=== PATIENT | male | born 1990 | race African-American/Black ===

== ENCOUNTER 2020-12-16 12:40 | Inpatient (IN) | payer MEDICARE, MEDICAID ==
[~2020-12-16] VITALS: Ht 177.8 cm; Wt 110.2 kg
[~2020-12-16 12:40] MED LIST: PALI234D IM; RISP3TAB35 PO
[2020-12-16 14:04] LABS: GLUCOMETER DEV NAME(LOC) POC.BV
[2020-12-16 14:50] VITALS: BP 152/86
[2020-12-16] MEDS: LORazepam 2 MG TABLET PO PRN (22:15)
[2020-12-16] MEDS: HALOPERIDOL 5 MG TABLET PO PRN (22:15)
[2020-12-17 01:58] VITALS: BP 106/66
[2020-12-17 03:11] VITALS: BP 112/74
[2020-12-17] MEDS: HALOPERIDOL 5 MG TABLET PO PRN ×2 (03:13→08:35)
[2020-12-17] MEDS: LORazepam 2 MG TABLET PO PRN ×2 (03:14→08:35)
[2020-12-17] MEDS ORDERED: ALBUTEROL SULFATE HFA 90 MCG/PUFF 8 GM INHALER IH PRN (07:45)
[2020-12-17] MEDS ORDERED: MAG HYDROX/AL HYDROX/SIMETH ES 30 ML SUSPENSION UDCUP PO PRN (07:45)
[2020-12-17] MEDS ORDERED: IBUPROFEN 400 MG TABLET PO PRN (07:45)
[2020-12-17] MEDS ORDERED: CloNIDine HCL 0.1 MG TABLET PO PRN (07:45)
[2020-12-17] MEDS ORDERED: NICOTINE 14 MG/24 HOUR PATCH TD PRN (07:45)
[2020-12-17] MEDS ORDERED: MAGNESIUM HYDROXIDE SUSPENSION 30 ML UDCUP PO PRN (07:45)
[2020-12-17] MEDS ORDERED: PETROLATUM,WHITE 28 GM JELLY TP PRN (07:45)
[2020-12-17] MEDS ORDERED: GuaiFENesin/D-METHORPHAN [SUGAR-FREE] 200-20MG/10 ML SYRUP UDCUP PO PRN (07:45)
[2020-12-17] MEDS ORDERED: ONDANSETRON HCL 4 MG TABLET PO PRN (07:45)
[2020-12-17] MEDS ORDERED: ACETAMINOPHEN 325 MG TABLET PO PRN (07:45)
[2020-12-17] MEDS ORDERED: LOPERAMIDE HCL 2 MG CAPSULE PO PRN (07:45)
[2020-12-17] MEDS ORDERED: DOCUSATE SODIUM 100 MG CAPSULE PO PRN (07:45)
[2020-12-17 08:25] VITALS: BP 123/65
[2020-12-17] MEDS: DIVALPROEX SODIUM 500 MG DR TABLET PO SCH (20:41)
[2020-12-18 05:20] VITALS: BP 118/72
[2020-12-18] MEDS: DIVALPROEX SODIUM 500 MG DR TABLET PO SCH ×2 (08:26→20:03)
[2020-12-18 09:06] VITALS: BP 141/87
[2020-12-18 16:14] VITALS: BP 136/80
[2020-12-18] MEDS: ZOLPIDEM TARTRATE 10 MG TABLET PO PRN (20:03)
[2020-12-18] MEDS: LORazepam 2 MG TABLET PO PRN (22:36)
[2020-12-19 00:08] VITALS: BP 139/85
[2020-12-19] MEDS: LORazepam 2 MG TABLET PO PRN ×2 (08:25→21:05)
[2020-12-19] MEDS: DIVALPROEX SODIUM 500 MG DR TABLET PO SCH ×2 (08:43→20:14)
[2020-12-19 09:06] VITALS: BP 115/65
[2020-12-19 16:00] VITALS: BP 126/75
[2020-12-20 04:14] VITALS: BP 138/87
[2020-12-20] MEDS: LORazepam 2 MG TABLET PO PRN ×2 (08:10→16:16)
[2020-12-20] MEDS: DIVALPROEX SODIUM 500 MG DR TABLET PO SCH ×2 (08:35→20:04)
[2020-12-20 09:40] VITALS: BP 140/88
[2020-12-20] MEDS: HALOPERIDOL 5 MG TABLET PO PRN (16:16)
[2020-12-20 18:29] VITALS: BP 124/72
[2020-12-21 01:11] VITALS: BP 125/69
[2020-12-21] MEDS: LORazepam 2 MG TABLET PO PRN ×3 (03:30→17:14)
[2020-12-21 08:12] LABS: BASOPHILS % (AUTO) 0.5 % (0.0-2.0); EOSINOPHILS % (AUTO) 1.2 % (1.0-6.0); HEMATOCRIT 43.9 % (41-53); HEMOGLOBIN 14.6 g/dL (13.5-17.5); LYMPHOCYTES % (AUTO) 37.5 % (22.0-44.0); MEAN CORPUSCULAR HEMOGLOBIN 29.8 pg (26.0-34.0); MEAN CORPUSCULAR HGB CONC 33.3 G/dL (31.0-37.0); MEAN CORPUSCULAR VOLUME 90 fL (80-100); MONOCYTES # (AUTO) 0.5 K/uL (0.1-1.0); MONOCYTES % (AUTO) 6.9 % (2.0-9.0); NEUTROPHILS # (AUTO) 4.3 K/uL (1.8-7.7); NEUTROPHILS % (AUTO) 53.9 % (40.0-70.0); PLATELET COUNT (AUTO) 206 K/uL (150-450); RED BLOOD CELL COUNT(AUTO) 4.91 MIL/uL (4.50-5.90); RED CELL DISTRIBUTION WIDTH 12.6 % (11.5-14.5)
[2020-12-21 08:22] LABS: HEMOGLOBIN A1C 4.7 % (3.8-5.6)
[2020-12-21] MEDS: DIVALPROEX SODIUM 500 MG DR TABLET PO SCH ×2 (08:48→21:11)
[2020-12-21 09:31] LABS: ALANINE AMINOTRANSFERASE 36 U/L (12-78); ALBUMIN 3.6 g/dL (3.4-5.0); ALKALINE PHOSPHATASE 93 U/L (46-116); ANION GAP 6 mmol/L (8-16); ASPARTATE AMINOTRANSFERASE 19 U/L (15-37); BILIRUBIN,TOTAL 0.4 mg/dL (0.1-1.0); CALCIUM, TOTAL 8.8 mg/dL (8.8-10.5); CARBON DIOXIDE 29 mmol/L (22-29); CHLORIDE 103 mmol/L (98-107); CHOL/HDL RATIO 3.1 (4.2-7.3); CHOLESTEROL 176 mg/dL (131-200); CREATININE 0.87 mg/dL (0.60-1.30); FREE T4 (FREE THYROXINE) 0.88 ng/dL (0.76-1.46); GLOMERULAR FILTR. RATE CALC > 60 mL/min (>60); GLUCOSE,RANDOM 92 mg/dL (70-110); HDL CHOLESTEROL 57 mg/dL (40-60); LDL CHOL (CALC.) 80 mg/dL (0-130); POTASSIUM 4.1 mmol/L (3.5-5.1); SODIUM SERUM 138 mmol/L (136-145); THYROID STIMULATING HORMONE 1.32 uIU/mL (0.36-3.74); TOTAL PROTEIN, SERUM 7.8 g/dL (6.4-8.2); TRIGLYCERIDES 197 mg/dL (15-150); UREA NITROGEN, BLOOD 15 mg/dL (7-18)
[2020-12-21 10:19] VITALS: BP 119/70
[2020-12-21 16:00] VITALS: BP 131/79
[2020-12-21] MEDS: HALOPERIDOL 5 MG TABLET PO PRN (17:14)
[2020-12-22 00:59] VITALS: BP 123/75
[2020-12-22] MEDS: LORazepam 2 MG TABLET PO PRN ×2 (08:16→17:54)
[2020-12-22] MEDS: DIVALPROEX SODIUM 500 MG DR TABLET PO SCH ×2 (08:16→20:13)
[2020-12-22] MEDS: HALOPERIDOL 5 MG TABLET PO PRN ×2 (08:16→17:54)
[2020-12-22 08:33] VITALS: BP 127/76
[2020-12-22 17:51] VITALS: BP 146/86
[2020-12-22] MEDS: ZOLPIDEM TARTRATE 10 MG TABLET PO PRN (20:13)
[2020-12-22 20:27] VITALS: BP 146/86
[2020-12-23 04:30] VITALS: BP 120/81
[2020-12-23] MEDS: LORazepam 2 MG TABLET PO PRN (08:30)
[2020-12-23 08:31] VITALS: BP 119/73
[2020-12-23] MEDS: DIVALPROEX SODIUM 500 MG DR TABLET PO SCH ×2 (09:31→20:23)
[2020-12-23 16:27] VITALS: BP 111/66
[2020-12-23] MEDS: ZOLPIDEM TARTRATE 10 MG TABLET PO PRN (20:23)
[2020-12-24 06:11] VITALS: BP 112/72
[2020-12-24] MEDS: LORazepam 2 MG TABLET PO PRN ×2 (08:25→16:11)
[2020-12-24 08:35] VITALS: BP 115/69
[2020-12-24] MEDS: DIVALPROEX SODIUM 500 MG DR TABLET PO SCH ×2 (08:42→20:11)
[2020-12-24] MEDS: HALOPERIDOL 5 MG TABLET PO PRN (16:11)
[2020-12-24 16:27] VITALS: BP 143/88
[2020-12-24] MEDS: ZOLPIDEM TARTRATE 10 MG TABLET PO PRN (20:11)
[2020-12-25 01:30] VITALS: BP 108/57
[2020-12-25 08:35] VITALS: BP 133/73
[2020-12-25] MEDS: LORazepam 2 MG TABLET PO PRN ×2 (08:45→16:43)
[2020-12-25] MEDS: DIVALPROEX SODIUM 500 MG DR TABLET PO SCH ×2 (09:14→20:27)
[2020-12-25 16:32] VITALS: BP 118/62
[2020-12-25] MEDS: HALOPERIDOL 5 MG TABLET PO PRN (16:43)
[2020-12-25] MEDS: ZOLPIDEM TARTRATE 10 MG TABLET PO PRN (20:27)
[2020-12-26 01:56] VITALS: BP 133/81
[2020-12-26 08:34] VITALS: BP 131/81
[2020-12-26] MEDS: DIVALPROEX SODIUM 500 MG DR TABLET PO SCH (08:44)
[2020-12-26 16:18] VITALS: BP 149/76
[2020-12-26] MEDS: DIVALPROEX SODIUM 250 MG DR TABLET PO SCH (20:20)
[2020-12-26 21:07] VITALS: BP 129/81
[2020-12-27 00:27] VITALS: BP 122/75
[2020-12-27] MEDS: ZOLPIDEM TARTRATE 10 MG TABLET PO PRN ×2 (00:47→20:20)
[2020-12-27 08:15] VITALS: BP 128/74
[2020-12-27] MEDS: DIVALPROEX SODIUM 250 MG DR TABLET PO SCH ×2 (08:16→20:20)
[2020-12-27] MEDS: HALOPERIDOL 5 MG TABLET PO PRN ×2 (08:16→16:35)
[2020-12-27] MEDS: LORazepam 2 MG TABLET PO PRN ×3 (08:16→22:53)
[2020-12-27] MEDS: BACITRACIN 28 GM OINTMENT TP SCH ×2 (10:08→16:35)
[2020-12-27 16:16] VITALS: BP 105/65
[2020-12-28 02:21] VITALS: BP 153/87
[2020-12-28] MEDS: DIVALPROEX SODIUM 250 MG DR TABLET PO SCH ×2 (08:22→20:18)
[2020-12-28] MEDS: HALOPERIDOL 5 MG TABLET PO PRN (08:22)
[2020-12-28] MEDS: LORazepam 2 MG TABLET PO PRN (08:22)
[2020-12-28] MEDS: BACITRACIN 28 GM OINTMENT TP SCH ×2 (08:22→16:38)
[2020-12-28 08:46] VITALS: BP 109/60
[2020-12-28 16:19] VITALS: BP 117/73
[2020-12-28] MEDS: ZOLPIDEM TARTRATE 10 MG TABLET PO PRN (20:18)
[2020-12-29 00:38] VITALS: BP 117/73
[2020-12-29] MEDS: LORazepam 2 MG TABLET PO PRN ×2 (08:15→16:33)
[2020-12-29] MEDS: HALOPERIDOL 5 MG TABLET PO PRN ×2 (08:15→16:33)
[2020-12-29] MEDS: DIVALPROEX SODIUM 250 MG DR TABLET PO SCH (08:45)
[2020-12-29] MEDS: BACITRACIN 28 GM OINTMENT TP SCH ×2 (08:45→16:32)
[2020-12-29 10:03] VITALS: BP 112/70
[2020-12-29] MEDS ORDERED: DIVA-111 PO (15:30)
[2020-12-30] MEDS ORDERED: PALIPERIDONE PALMITATE 234 MG/1.5 ML SYRINGE IM SCH (09:00)
== END 2020-12-29 17:20 | disposition home or self-care (01) | DRG 885 ==
LOC: B3A 13:58
DX: F25.0 Schizoaffective disorder, bipolar type (principal); E66.9 Obesity, unspecified; E78.5 Hyperlipidemia, unspecified; Z59.0 Homelessness; R03.0 Elevated blood-pressure reading, without diagnosis of hypertension; Z68.34 Body mass index [BMI] 34.0-34.9, adult; Z20.822 Contact with and (suspected) exposure to COVID-19
CPT/HCPCS: 80053; 80061; 80164; 83036; 84436; 84439; 84443; 85025

== ENCOUNTER 2021-01-20 09:51 | Emergency (ER) | payer MEDICARE, MEDICAID ==
[~2021-01-20] VITALS: Ht 177.8 cm; Wt 110.2 kg
[~2021-01-20 09:51] MED LIST changes: +DIVA-111 PO; -RISP3TAB35 PO
[2021-01-20] MEDS: HALOPERIDOL 5 MG TABLET PO ONE ×2 (10:22→11:08)
[2021-01-20] MEDS: LORazepam 1 MG TABLET PO ONE ×2 (10:22→11:08)
[2021-01-20 10:42] VITALS: BP 129/79
[2021-01-20 10:46] LABS: AMPHET/METH SCREEN,URINE NEGATIVE (NEGATIVE); BARBITURATE SCREEN, URINE NEGATIVE (NEGATIVE); BENZODIAZEPINES SCREEN,URINE NEGATIVE (NEGATIVE); CANNABINOID SCREEN,URINE NEGATIVE (NEGATIVE); COCAINE SCREEN,URINE NEGATIVE (NEGATIVE); METHADONE SCREEN, URINE NEGATIVE (NEGATIVE); OPIATE SCREEN,URINE NEGATIVE (NEGATIVE)
[2021-01-20 11:13] LABS: PHENCYCLIDINE SCREEN,URINE NEGATIVE (NEGATIVE)
[2021-01-20 11:23] LABS: BASOPHILS % (AUTO) 0.5 % (0.0-2.0); EOSINOPHILS % (AUTO) 0.2 % (1.0-6.0); HEMOGLOBIN 15.3 g/dL (13.5-17.5); LYMPHOCYTES # (AUTO) 2.3 K/uL (1.0-4.8); LYMPHOCYTES % (AUTO) 24.2 % (22.0-44.0); MEAN CORPUSCULAR HEMOGLOBIN 29.1 pg (26.0-34.0); MEAN CORPUSCULAR HGB CONC 32.5 G/dL (31.0-37.0); MEAN CORPUSCULAR VOLUME 90 fL (80-100); MONOCYTES # (AUTO) 0.7 K/uL (0.1-1.0); MONOCYTES % (AUTO) 7.9 % (2.0-9.0); NEUTROPHILS # (AUTO) 6.3 K/uL (1.8-7.7); NEUTROPHILS % (AUTO) 67.2 % (40.0-70.0); PLATELET COUNT (AUTO) 167 K/uL (150-450); RED BLOOD CELL COUNT(AUTO) 5.25 MIL/uL (4.50-5.90); RED CELL DISTRIBUTION WIDTH 13.4 % (11.5-14.5)
[2021-01-20 11:47] LABS: ANION GAP 9 mmol/L (8-16); CALCIUM, TOTAL 9.3 mg/dL (8.8-10.5); CARBON DIOXIDE 27 mmol/L (22-29); CHLORIDE 104 mmol/L (98-107); CREATININE 1.19 mg/dL (0.60-1.30); GLOMERULAR FILTR. RATE CALC > 60 mL/min (>60); GLUCOSE,RANDOM 107 mg/dL (70-110); POTASSIUM 4.2 mmol/L (3.5-5.1); SODIUM SERUM 140 mmol/L (136-145); UREA NITROGEN, BLOOD 27 mg/dL (7-18)
[2021-01-20 11:54] LABS: ALANINE AMINOTRANSFERASE 198 U/L (12-78); ALBUMIN 4.3 g/dL (3.4-5.0); ALKALINE PHOSPHATASE 104 U/L (46-116); ASPARTATE AMINOTRANSFERASE 439 U/L (15-37); BILIRUBIN,TOTAL 0.5 mg/dL (0.1-1.0); TOTAL PROTEIN, SERUM 8.9 g/dL (6.4-8.2)
[2021-01-20 12:10] LABS: VALPROIC ACID < 3 mcg/mL (50-100)
== END 2021-01-20 13:34 | disposition home or self-care (01) ==
LOC: EMS 09:59
DX: F25.9 Schizoaffective disorder, unspecified (principal); F31.9 Bipolar disorder, unspecified
CPT/HCPCS: 36415; 80053; 80164; 80307; 85025; 99284; G0480

== ENCOUNTER 2021-01-21 17:08 | Inpatient (IN) | payer MEDICARE, MEDICAID ==
[~2021-01-21] VITALS: Ht 185.4 cm; Wt 117.9 kg
[2021-01-21 20:05] VITALS: BP 127/72
[2021-01-21] MEDS: LORazepam 2 MG TABLET PO PRN (22:21)
[2021-01-21] MEDS: ZOLPIDEM TARTRATE 10 MG TABLET PO PRN (22:21)
[2021-01-22 04:31] VITALS: BP 130/79
[2021-01-22 07:24] LABS: BASOPHILS % (AUTO) 0.3 % (0.0-2.0); EOSINOPHILS % (AUTO) 0.6 % (1.0-6.0); HEMATOCRIT 41.2 % (41-53); HEMOGLOBIN 13.5 g/dL (13.5-17.5); LYMPHOCYTES # (AUTO) 2.7 K/uL (1.0-4.8); LYMPHOCYTES % (AUTO) 30.7 % (22.0-44.0); MEAN CORPUSCULAR HEMOGLOBIN 29.5 pg (26.0-34.0); MEAN CORPUSCULAR HGB CONC 32.7 G/dL (31.0-37.0); MEAN CORPUSCULAR VOLUME 90 fL (80-100); MONOCYTES # (AUTO) 0.8 K/uL (0.1-1.0); MONOCYTES % (AUTO) 9.2 % (2.0-9.0); NEUTROPHILS # (AUTO) 5.2 K/uL (1.8-7.7); NEUTROPHILS % (AUTO) 59.2 % (40.0-70.0); PLATELET COUNT (AUTO) 152 K/uL (150-450); RED BLOOD CELL COUNT(AUTO) 4.58 MIL/uL (4.50-5.90); RED CELL DISTRIBUTION WIDTH 13.3 % (11.5-14.5)
[2021-01-22 07:38] LABS: HEMOGLOBIN A1C 5.2 % (3.8-5.6)
[2021-01-22 07:48] LABS: ALANINE AMINOTRANSFERASE 128 U/L (12-78); ALBUMIN 3.6 g/dL (3.4-5.0); ALKALINE PHOSPHATASE 89 U/L (46-116); ANION GAP 9 mmol/L (8-16); ASPARTATE AMINOTRANSFERASE 133 U/L (15-37); BILIRUBIN,TOTAL 0.5 mg/dL (0.1-1.0); CALCIUM, TOTAL 8.2 mg/dL (8.8-10.5); CARBON DIOXIDE 28 mmol/L (22-29); CHLORIDE 101 mmol/L (98-107); CHOL/HDL RATIO 2.6 (4.2-7.3); CHOLESTEROL 177 mg/dL (131-200); CREATININE 1.02 mg/dL (0.60-1.30); FREE T4 (FREE THYROXINE) 0.91 ng/dL (0.76-1.46); GLOMERULAR FILTR. RATE CALC > 60 mL/min (>60); GLUCOSE,RANDOM 121 mg/dL (70-110); HDL CHOLESTEROL 67 mg/dL (40-60); LDL CHOL (CALC.) 100 mg/dL (0-130); POTASSIUM 3.8 mmol/L (3.5-5.1); SODIUM SERUM 138 mmol/L (136-145); THYROID STIMULATING HORMONE 1.67 uIU/mL (0.36-3.74); TOTAL PROTEIN, SERUM 7.4 g/dL (6.4-8.2); TRIGLYCERIDES 48 mg/dL (15-150); UREA NITROGEN, BLOOD 19 mg/dL (7-18)
[2021-01-22 08:33] VITALS: BP 132/79
[2021-01-22] MEDS: DIVALPROEX SODIUM 250 MG DR TABLET PO SCH ×2 (10:03→21:31)
[2021-01-22] MEDS: LORazepam 2 MG TABLET PO PRN ×2 (10:03→16:10)
[2021-01-22] MEDS ORDERED: ALBUTEROL SULFATE HFA 90 MCG/PUFF 8 GM INHALER IH PRN (12:30)
[2021-01-22] MEDS ORDERED: ACETAMINOPHEN 325 MG TABLET PO PRN (12:30)
[2021-01-22] MEDS ORDERED: PETROLATUM,WHITE 28 GM JELLY TP PRN (12:30)
[2021-01-22] MEDS ORDERED: ONDANSETRON HCL 4 MG TABLET PO PRN (12:30)
[2021-01-22] MEDS ORDERED: CloNIDine HCL 0.1 MG TABLET PO PRN (12:30)
[2021-01-22] MEDS ORDERED: NICOTINE 14 MG/24 HOUR PATCH TD PRN (12:30)
[2021-01-22] MEDS ORDERED: LOPERAMIDE HCL 2 MG CAPSULE PO PRN (12:30)
[2021-01-22] MEDS ORDERED: GuaiFENesin/D-METHORPHAN [SUGAR-FREE] 200-20MG/10 ML SYRUP UDCUP PO PRN (12:30)
[2021-01-22] MEDS: HALOPERIDOL 5 MG TABLET PO PRN (16:10)
[2021-01-22 16:17] VITALS: BP 134/75
[2021-01-22] MEDS: ZOLPIDEM TARTRATE 10 MG TABLET PO PRN (21:31)
[2021-01-23 05:12] VITALS: BP 136/83
[2021-01-23] MEDS: LORazepam 2 MG TABLET PO PRN ×2 (08:10→18:41)
[2021-01-23 08:28] VITALS: BP 139/84
[2021-01-23] MEDS: DIVALPROEX SODIUM 250 MG DR TABLET PO SCH ×2 (08:38→20:32)
[2021-01-23 08:57] LABS: AMPHET/METH SCREEN,URINE NEGATIVE (NEGATIVE); BARBITURATE SCREEN, URINE NEGATIVE (NEGATIVE); BENZODIAZEPINES SCREEN,URINE NEGATIVE (NEGATIVE); CANNABINOID SCREEN,URINE NEGATIVE (NEGATIVE); COCAINE SCREEN,URINE NEGATIVE (NEGATIVE); METHADONE SCREEN, URINE NEGATIVE (NEGATIVE); OPIATE SCREEN,URINE NEGATIVE (NEGATIVE)
[2021-01-23 09:06] LABS: PHENCYCLIDINE SCREEN,URINE NEGATIVE (NEGATIVE)
[2021-01-23 09:24] LABS: APPEARANCE,URINE CLEAR (CLEAR); BILIRUBIN,URINE NEGATIVE (NEGATIVE); GLUCOSE, URINE (UA) NEGATIVE (NEGATIVE); KETONES,URINE NEGATIVE (NEGATIVE); LEUKOCYTE ESTERASE ,URINE NEGATIVE (NEGATIVE); NITRATE,URINE NEGATIVE (NEGATIVE); OCCULT BLOOD,URINE NEGATIVE (NEGATIVE); PH,URINE 6.5 (5.0-8.0); PROTEIN,URINE NEGATIVE (NEGATIVE); UROBILINOGEN,URINE 0.2 mg/dL (<=1.0)
[2021-01-23 16:07] VITALS: BP 148/83
[2021-01-23] MEDS: HALOPERIDOL 5 MG TABLET PO PRN (18:41)
[2021-01-23 19:41] VITALS: BP 138/75
[2021-01-23] MEDS: ZOLPIDEM TARTRATE 10 MG TABLET PO PRN (20:38)
[2021-01-24 01:23] VITALS: BP 136/74
[2021-01-24 08:24] VITALS: BP 134/86
[2021-01-24] MEDS: DIVALPROEX SODIUM 250 MG DR TABLET PO SCH ×2 (08:24→20:23)
[2021-01-24] MEDS: LORazepam 2 MG TABLET PO PRN ×2 (14:41→20:23)
[2021-01-24 16:11] VITALS: BP 156/88
[2021-01-24] MEDS: HALOPERIDOL 5 MG TABLET PO PRN (20:23)
[2021-01-25 01:37] VITALS: BP 132/82
[2021-01-25] MEDS: DIVALPROEX SODIUM 250 MG DR TABLET PO SCH ×2 (08:28→20:20)
[2021-01-25] MEDS: LORazepam 2 MG TABLET PO PRN ×2 (08:29→16:34)
[2021-01-25 08:51] VITALS: BP 138/83
[2021-01-25 16:15] VITALS: BP 133/76
[2021-01-26 06:20] VITALS: BP 128/71
[2021-01-26 08:24] VITALS: BP 126/72
[2021-01-26] MEDS: DIVALPROEX SODIUM 250 MG DR TABLET PO SCH ×2 (08:35→20:44)
[2021-01-26] MEDS: LORazepam 2 MG TABLET PO PRN (14:02)
[2021-01-26] MEDS: HALOPERIDOL 5 MG TABLET PO PRN (15:54)
[2021-01-26 16:18] VITALS: BP 102/72
[2021-01-27 02:40] VITALS: BP 114/57
[2021-01-27 08:21] VITALS: BP 111/70
[2021-01-27] MEDS: DIVALPROEX SODIUM 250 MG DR TABLET PO SCH ×2 (08:26→21:11)
[2021-01-27] MEDS: LORazepam 2 MG TABLET PO PRN ×2 (08:29→21:12)
[2021-01-27] MEDS: PALIPERIDONE PALMITATE 234 MG/1.5 ML SYRINGE IM SCH (08:39)
[2021-01-27 16:12] VITALS: BP 127/70
[2021-01-27] MEDS: ZOLPIDEM TARTRATE 10 MG TABLET PO PRN (21:11)
[2021-01-28 05:34] VITALS: BP 121/68
[2021-01-28 08:22] VITALS: BP 124/72
[2021-01-28] MEDS: LORazepam 2 MG TABLET PO PRN (09:19)
[2021-01-28] MEDS: DIVALPROEX SODIUM 250 MG DR TABLET PO SCH ×2 (09:19→20:27)
[2021-01-28 16:20] VITALS: BP 116/73
[2021-01-29 05:27] VITALS: BP 120/72
[2021-01-29] MEDS: LORazepam 2 MG TABLET PO PRN ×2 (08:10→16:11)
[2021-01-29] MEDS: DIVALPROEX SODIUM 250 MG DR TABLET PO SCH ×2 (08:52→20:48)
[2021-01-29 08:57] VITALS: BP 127/73
[2021-01-29 16:16] VITALS: BP 135/78
[2021-01-29] MEDS: ZOLPIDEM TARTRATE 10 MG TABLET PO PRN (20:48)
[2021-01-30 03:48] VITALS: BP 123/78
[2021-01-30] MEDS: DIVALPROEX SODIUM 250 MG DR TABLET PO SCH ×2 (08:50→20:37)
[2021-01-30 10:03] VITALS: BP 117/72
[2021-01-30 16:14] VITALS: BP 130/70
[2021-01-30] MEDS: ZOLPIDEM TARTRATE 10 MG TABLET PO PRN (22:11)
[2021-01-31 04:00] VITALS: BP 124/78
[2021-01-31] MEDS: DIVALPROEX SODIUM 250 MG DR TABLET PO SCH ×2 (08:49→20:01)
[2021-01-31 10:04] VITALS: BP 81/119
[2021-01-31 16:54] VITALS: BP 118/81
[2021-02-01 01:17] VITALS: BP 128/74
[2021-02-01] MEDS: DIVALPROEX SODIUM 250 MG DR TABLET PO SCH ×2 (08:23→20:14)
[2021-02-01 08:32] VITALS: BP 113/73
[2021-02-01 16:26] VITALS: BP 129/63
[2021-02-02 01:55] VITALS: BP 148/91
[2021-02-02 08:14] VITALS: BP 141/87
[2021-02-02] MEDS: DIVALPROEX SODIUM 250 MG DR TABLET PO SCH ×2 (08:21→20:01)
[2021-02-02] MEDS: MAG HYDROX/AL HYDROX/SIMETH ES 30 ML SUSPENSION UDCUP PO PRN ×2 (14:28→21:08)
[2021-02-02 16:18] VITALS: BP 133/72
[2021-02-03 03:02] VITALS: BP 123/76
[2021-02-03] MEDS: DIVALPROEX SODIUM 250 MG DR TABLET PO SCH ×2 (08:25→20:54)
[2021-02-03 09:07] VITALS: BP 123/72
[2021-02-03 16:08] VITALS: BP 116/65
[2021-02-04 01:00] VITALS: BP 108/68
[2021-02-04 09:16] VITALS: BP 135/78
[2021-02-04] MEDS: DIVALPROEX SODIUM 250 MG DR TABLET PO SCH ×2 (09:16→20:01)
[2021-02-04 16:21] VITALS: BP 122/73
[2021-02-05 02:25] VITALS: BP 118/65
[2021-02-05] MEDS: DIVALPROEX SODIUM 250 MG DR TABLET PO SCH ×2 (08:36→20:35)
[2021-02-05 08:56] VITALS: BP 110/63
[2021-02-05 16:14] VITALS: BP 122/66
[2021-02-05] MEDS: DOCUSATE SODIUM 100 MG CAPSULE PO PRN (20:35)
[2021-02-06] MEDS: MAGNESIUM HYDROXIDE SUSPENSION 30 ML UDCUP PO PRN (04:38)
[2021-02-06 04:50] VITALS: BP 120/68
[2021-02-06 09:02] VITALS: BP 123/78
[2021-02-06] MEDS: DIVALPROEX SODIUM 250 MG DR TABLET PO SCH ×2 (09:22→20:14)
[2021-02-06] MEDS: DOCUSATE SODIUM 100 MG CAPSULE PO PRN (09:23)
[2021-02-06 16:11] VITALS: BP 141/83
[2021-02-07 00:21] VITALS: BP 128/76
[2021-02-07] MEDS: MAGNESIUM HYDROXIDE SUSPENSION 30 ML UDCUP PO PRN (05:35)
[2021-02-07] MEDS: DIVALPROEX SODIUM 250 MG DR TABLET PO SCH ×2 (08:01→20:10)
[2021-02-07 08:19] VITALS: BP 123/79
[2021-02-07 16:05] VITALS: BP 112/83
[2021-02-08 04:09] VITALS: BP 123/78
[2021-02-08 08:10] VITALS: BP 122/74
[2021-02-08] MEDS: DIVALPROEX SODIUM 250 MG DR TABLET PO SCH ×2 (08:18→20:04)
[2021-02-08 16:03] VITALS: BP 120/69
[2021-02-08] MEDS: LORazepam 2 MG TABLET PO PRN (18:09)
[2021-02-08] MEDS: HALOPERIDOL 5 MG TABLET PO PRN (18:09)
[2021-02-09 02:30] VITALS: BP 104/61
[2021-02-09] MEDS: IBUPROFEN 400 MG TABLET PO PRN (02:51)
[2021-02-09 08:27] VITALS: BP 114/75
[2021-02-09] MEDS: DIVALPROEX SODIUM 250 MG DR TABLET PO SCH ×2 (09:29→20:30)
[2021-02-09 16:06] VITALS: BP 126/74
[2021-02-09] MEDS: DOCUSATE SODIUM 100 MG CAPSULE PO PRN (18:03)
[2021-02-10 00:05] VITALS: BP 130/81
[2021-02-10 08:05] LABS: COVID AG,FIA SOURCE NASOPHARYNGEAL
[2021-02-10] MEDS: DIVALPROEX SODIUM 250 MG DR TABLET PO SCH ×2 (08:08→20:34)
[2021-02-10 08:14] VITALS: BP 108/65
[2021-02-10 16:08] VITALS: BP 127/80
[2021-02-10] MEDS: ZOLPIDEM TARTRATE 10 MG TABLET PO PRN (22:34)
[2021-02-11 01:29] VITALS: BP 131/82
[2021-02-11] MEDS: LORazepam 2 MG TABLET PO PRN (04:08)
[2021-02-11] MEDS: DIVALPROEX SODIUM 250 MG DR TABLET PO SCH ×2 (09:10→20:36)
[2021-02-11 09:29] VITALS: BP 122/73
[2021-02-11 16:32] VITALS: BP 138/81
[2021-02-12 02:26] VITALS: BP_SYST 127
[2021-02-12] MEDS: DIVALPROEX SODIUM 250 MG DR TABLET PO SCH ×2 (08:22→20:56)
[2021-02-12 08:46] VITALS: BP 115/67
[2021-02-12] MEDS: LORazepam 2 MG TABLET PO PRN (14:43)
[2021-02-12 16:18] VITALS: BP 115/73
[2021-02-12] MEDS: ZOLPIDEM TARTRATE 10 MG TABLET PO PRN (20:57)
[2021-02-13 02:14] VITALS: BP 149/86
[2021-02-13] MEDS: DIVALPROEX SODIUM 250 MG DR TABLET PO SCH ×2 (08:10→20:22)
[2021-02-13 08:46] VITALS: BP 135/72
[2021-02-13] MEDS: LORazepam 2 MG TABLET PO PRN (10:27)
[2021-02-13] MEDS: HALOPERIDOL 5 MG TABLET PO PRN (10:27)
[2021-02-13 16:22] VITALS: BP 128/75
[2021-02-14] MEDS: ZOLPIDEM TARTRATE 10 MG TABLET PO PRN (01:30)
[2021-02-14 01:37] VITALS: BP 134/88
[2021-02-14 08:28] VITALS: BP 109/64
[2021-02-14] MEDS: DIVALPROEX SODIUM 250 MG DR TABLET PO SCH ×2 (09:08→20:33)
[2021-02-14 16:08] VITALS: BP 137/74
[2021-02-15 01:32] VITALS: BP 113/61
[2021-02-15 08:13] VITALS: BP 146/86
[2021-02-15] MEDS: DIVALPROEX SODIUM 250 MG DR TABLET PO SCH ×2 (08:56→20:42)
[2021-02-15 16:14] VITALS: BP 111/64
[2021-02-15] MEDS: LORazepam 2 MG TABLET PO PRN (19:46)
[2021-02-16 04:36] VITALS: BP 161/85
[2021-02-16] MEDS: DIVALPROEX SODIUM 250 MG DR TABLET PO SCH ×2 (08:22→20:14)
[2021-02-16 08:47] VITALS: BP 110/60
[2021-02-16] MEDS ORDERED: TUBERCULIN, PURIFIED PROTEIN DERIVATIVE 5 TU/0.1 ML SYRINGE ID ONE (12:00)
[2021-02-16 16:18] VITALS: BP 134/74
[2021-02-16] MEDS: ZOLPIDEM TARTRATE 10 MG TABLET PO PRN (20:14)
[2021-02-17 04:09] VITALS: BP 118/70
[2021-02-17 07:38] LABS: COVID AG,FIA SOURCE NASOPHARYNGEAL
[2021-02-17] MEDS: DIVALPROEX SODIUM 250 MG DR TABLET PO SCH ×2 (08:07→20:12)
[2021-02-17 08:31] VITALS: BP 131/69
[2021-02-17] MEDS: HALOPERIDOL 5 MG TABLET PO PRN (08:36)
[2021-02-17] MEDS: LORazepam 2 MG TABLET PO PRN (08:36)
[2021-02-17 16:17] VITALS: BP 116/65
[2021-02-18 00:35] VITALS: BP 118/67
[2021-02-18 08:24] VITALS: BP 100/58
[2021-02-18] MEDS: DIVALPROEX SODIUM 250 MG DR TABLET PO SCH ×2 (08:31→20:10)
[2021-02-18] MEDS: MULTIVITAMINS WITH MINERALS, THERAPEUTIC TABLET PO SCH (12:32)
[2021-02-18 16:04] VITALS: BP 102/72
[2021-02-18] MEDS: ZOLPIDEM TARTRATE 10 MG TABLET PO PRN (20:26)
[2021-02-19 03:13] VITALS: BP 106/78
[2021-02-19 08:09] VITALS: BP 126/78
[2021-02-19] MEDS: DIVALPROEX SODIUM 250 MG DR TABLET PO SCH ×2 (08:16→20:01)
[2021-02-19] MEDS: MULTIVITAMINS WITH MINERALS, THERAPEUTIC TABLET PO SCH (08:16)
[2021-02-19] MEDS: HALOPERIDOL 5 MG TABLET PO PRN (08:17)
[2021-02-19] MEDS: LORazepam 2 MG TABLET PO PRN (11:14)
[2021-02-19 16:02] VITALS: BP 116/66
[2021-02-20 00:16] VITALS: BP 112/70
[2021-02-20 08:11] VITALS: BP 115/60
[2021-02-20 09:07] LABS: ALANINE AMINOTRANSFERASE 43 U/L (12-78); ALBUMIN 3.4 g/dL (3.4-5.0); ALKALINE PHOSPHATASE 71 U/L (46-116); ANION GAP 9 mmol/L (8-16); ASPARTATE AMINOTRANSFERASE 42 U/L (15-37); BILIRUBIN,TOTAL 0.3 mg/dL (0.1-1.0); CALCIUM, TOTAL 8.7 mg/dL (8.8-10.5); CARBON DIOXIDE 30 mmol/L (22-29); CHLORIDE 103 mmol/L (98-107); CREATININE 0.95 mg/dL (0.60-1.30); GLOMERULAR FILTR. RATE CALC > 60 mL/min (>60); GLUCOSE,RANDOM 97 mg/dL (70-110); POTASSIUM 4.2 mmol/L (3.5-5.1); SODIUM SERUM 142 mmol/L (136-145); TOTAL PROTEIN, SERUM 7.3 g/dL (6.4-8.2); UREA NITROGEN, BLOOD 19 mg/dL (7-18)
[2021-02-20] MEDS: LORazepam 2 MG TABLET PO PRN (09:53)
[2021-02-20] MEDS: DIVALPROEX SODIUM 250 MG DR TABLET PO SCH ×2 (09:54→20:07)
[2021-02-20] MEDS: MULTIVITAMINS WITH MINERALS, THERAPEUTIC TABLET PO SCH (09:54)
[2021-02-20 16:29] VITALS: BP 127/74
[2021-02-21 01:17] VITALS: BP 129/78
[2021-02-21] MEDS: LORazepam 2 MG TABLET PO PRN ×3 (01:21→17:13)
[2021-02-21] MEDS: ZOLPIDEM TARTRATE 10 MG TABLET PO PRN ×2 (01:21→21:02)
[2021-02-21 08:55] VITALS: BP 112/76
[2021-02-21] MEDS: MULTIVITAMINS WITH MINERALS, THERAPEUTIC TABLET PO SCH (08:57)
[2021-02-21] MEDS: DIVALPROEX SODIUM 250 MG DR TABLET PO SCH ×2 (08:57→21:01)
[2021-02-21] MEDS: HALOPERIDOL 5 MG TABLET PO PRN ×2 (11:33→17:13)
[2021-02-21 16:22] VITALS: BP 139/63
[2021-02-22 04:32] VITALS: BP 110/72
[2021-02-22] MEDS: MULTIVITAMINS WITH MINERALS, THERAPEUTIC TABLET PO SCH (08:09)
[2021-02-22] MEDS: DIVALPROEX SODIUM 250 MG DR TABLET PO SCH ×2 (08:09→20:34)
[2021-02-22 08:37] VITALS: BP 115/41
[2021-02-22] MEDS: HALOPERIDOL 5 MG TABLET PO PRN ×2 (10:01→17:29)
[2021-02-22 16:16] VITALS: BP 103/57
[2021-02-23 02:53] VITALS: BP 113/78
[2021-02-23 07:38] LABS: COVID AG,FIA SOURCE NASAL SWAB
[2021-02-23 08:30] VITALS: BP 128/70
[2021-02-23] MEDS: MULTIVITAMINS WITH MINERALS, THERAPEUTIC TABLET PO SCH (08:56)
[2021-02-23] MEDS: DIVALPROEX SODIUM 250 MG DR TABLET PO SCH ×2 (08:56→20:58)
[2021-02-23] MEDS: MAGNESIUM HYDROXIDE SUSPENSION 30 ML UDCUP PO PRN (09:39)
[2021-02-23] MEDS: HALOPERIDOL 5 MG TABLET PO PRN ×2 (13:06→17:22)
[2021-02-23] MEDS: IBUPROFEN 400 MG TABLET PO PRN (14:45)
[2021-02-23 16:14] VITALS: BP 135/75
[2021-02-23] MEDS: LORazepam 2 MG TABLET PO PRN (17:22)
[2021-02-24 00:25] VITALS: BP 116/74
[2021-02-24] MEDS: ZOLPIDEM TARTRATE 10 MG TABLET PO PRN ×2 (00:44→21:22)
[2021-02-24] MEDS: LORazepam 2 MG TABLET PO PRN (00:44)
[2021-02-24 08:32] VITALS: BP 101/60
[2021-02-24] MEDS: DIVALPROEX SODIUM 250 MG DR TABLET PO SCH ×2 (09:41→21:22)
[2021-02-24] MEDS: MULTIVITAMINS WITH MINERALS, THERAPEUTIC TABLET PO SCH (09:41)
[2021-02-24] MEDS: PALIPERIDONE PALMITATE 234 MG/1.5 ML SYRINGE IM SCH (10:01)
[2021-02-24] MEDS: MAGNESIUM HYDROXIDE SUSPENSION 30 ML UDCUP PO PRN (14:20)
[2021-02-24 16:17] VITALS: BP 114/83
[2021-02-25 01:25] VITALS: BP 123/81
[2021-02-25 08:33] VITALS: BP 122/81
[2021-02-25] MEDS: LORazepam 2 MG TABLET PO PRN ×2 (09:21→16:20)
[2021-02-25] MEDS: MULTIVITAMINS WITH MINERALS, THERAPEUTIC TABLET PO SCH (09:22)
[2021-02-25] MEDS: DIVALPROEX SODIUM 250 MG DR TABLET PO SCH ×2 (09:22→20:15)
[2021-02-25 16:23] VITALS: BP 132/92
[2021-02-25] MEDS: ZOLPIDEM TARTRATE 10 MG TABLET PO PRN (20:15)
[2021-02-26 01:44] VITALS: BP 130/84
[2021-02-26] MEDS: MULTIVITAMINS WITH MINERALS, THERAPEUTIC TABLET PO SCH (08:03)
[2021-02-26] MEDS: DIVALPROEX SODIUM 250 MG DR TABLET PO SCH ×2 (08:04→20:45)
[2021-02-26 08:51] VITALS: BP 132/72
[2021-02-26] MEDS: HALOPERIDOL 5 MG TABLET PO PRN (15:44)
[2021-02-26] MEDS: LORazepam 2 MG TABLET PO PRN ×2 (15:44→20:46)
[2021-02-26 16:26] VITALS: BP 108/68
[2021-02-26] MEDS: ZOLPIDEM TARTRATE 10 MG TABLET PO PRN (20:46)
[2021-02-27 01:35] VITALS: BP 118/69
[2021-02-27 08:09] VITALS: BP 128/76
[2021-02-27] MEDS: MULTIVITAMINS WITH MINERALS, THERAPEUTIC TABLET PO SCH (08:22)
[2021-02-27] MEDS: DIVALPROEX SODIUM 250 MG DR TABLET PO SCH ×2 (08:22→21:00)
[2021-02-27 16:22] VITALS: BP 135/85
[2021-02-27] MEDS: HALOPERIDOL 5 MG TABLET PO PRN (16:28)
[2021-02-27] MEDS: LORazepam 2 MG TABLET PO PRN (16:28)
[2021-02-27] MEDS: ZOLPIDEM TARTRATE 10 MG TABLET PO PRN (21:00)
[2021-02-28 00:04] VITALS: BP 118/75
[2021-02-28] MEDS: HALOPERIDOL 5 MG TABLET PO PRN ×3 (00:12→16:56)
[2021-02-28] MEDS: LORazepam 2 MG TABLET PO PRN ×2 (00:12→16:56)
[2021-02-28 08:23] VITALS: BP 133/84
[2021-02-28] MEDS: DIVALPROEX SODIUM 250 MG DR TABLET PO SCH ×2 (09:20→21:25)
[2021-02-28] MEDS: MULTIVITAMINS WITH MINERALS, THERAPEUTIC TABLET PO SCH (09:21)
[2021-02-28 16:14] VITALS: BP 136/85
[2021-03-01 01:29] VITALS: BP 140/83
[2021-03-01 08:14] VITALS: BP 117/69
[2021-03-01] MEDS: DIVALPROEX SODIUM 250 MG DR TABLET PO SCH ×2 (09:26→20:34)
[2021-03-01] MEDS: MULTIVITAMINS WITH MINERALS, THERAPEUTIC TABLET PO SCH (09:26)
[2021-03-01 16:15] VITALS: BP 117/62
[2021-03-01] MEDS: HALOPERIDOL 5 MG TABLET PO PRN (18:14)
[2021-03-01] MEDS: LORazepam 2 MG TABLET PO PRN (18:14)
[2021-03-01] MEDS: ZOLPIDEM TARTRATE 10 MG TABLET PO PRN (20:35)
[2021-03-02 05:56] VITALS: BP 122/72
[2021-03-02 08:19] LABS: COVID AG,FIA SOURCE NASAL SWAB
[2021-03-02 08:24] VITALS: BP 106/64
[2021-03-02] MEDS: DIVALPROEX SODIUM 250 MG DR TABLET PO SCH ×2 (08:45→20:49)
[2021-03-02] MEDS: MULTIVITAMINS WITH MINERALS, THERAPEUTIC TABLET PO SCH (08:45)
[2021-03-02] MEDS: HALOPERIDOL 5 MG TABLET PO PRN (16:09)
[2021-03-02] MEDS: LORazepam 2 MG TABLET PO PRN (16:09)
[2021-03-02 16:11] VITALS: BP 114/73
[2021-03-02] MEDS: ZOLPIDEM TARTRATE 10 MG TABLET PO PRN (20:49)
[2021-03-03 00:28] VITALS: BP 117/69
[2021-03-03] MEDS: DIVALPROEX SODIUM 250 MG DR TABLET PO SCH ×2 (08:31→20:24)
[2021-03-03] MEDS: MULTIVITAMINS WITH MINERALS, THERAPEUTIC TABLET PO SCH (08:31)
[2021-03-03 08:32] VITALS: BP 100/62
[2021-03-03] MEDS: LORazepam 2 MG TABLET PO PRN (16:00)
[2021-03-03] MEDS: HALOPERIDOL 5 MG TABLET PO PRN (16:00)
[2021-03-03 16:47] VITALS: BP 132/74
[2021-03-03] MEDS: MAGNESIUM HYDROXIDE SUSPENSION 30 ML UDCUP PO PRN (17:22)
[2021-03-04 05:24] VITALS: BP 118/66
[2021-03-04 08:35] VITALS: BP 101/62
[2021-03-04] MEDS: DIVALPROEX SODIUM 250 MG DR TABLET PO SCH ×2 (09:50→20:38)
[2021-03-04] MEDS: MULTIVITAMINS WITH MINERALS, THERAPEUTIC TABLET PO SCH (09:51)
[2021-03-04 16:12] VITALS: BP 110/69
[2021-03-04] MEDS: MAG HYDROX/AL HYDROX/SIMETH ES 30 ML SUSPENSION UDCUP PO PRN (20:08)
[2021-03-05] MEDS: MAGNESIUM HYDROXIDE SUSPENSION 30 ML UDCUP PO PRN (04:55)
[2021-03-05 05:30] VITALS: BP 128/61
[2021-03-05 08:26] VITALS: BP 117/74
[2021-03-05] MEDS: MULTIVITAMINS WITH MINERALS, THERAPEUTIC TABLET PO SCH (08:38)
[2021-03-05] MEDS: DIVALPROEX SODIUM 250 MG DR TABLET PO SCH ×2 (08:38→20:27)
[2021-03-05 16:20] VITALS: BP 130/73
[2021-03-05] MEDS: MAG HYDROX/AL HYDROX/SIMETH ES 30 ML SUSPENSION UDCUP PO PRN (17:14)
[2021-03-05] MEDS: ZOLPIDEM TARTRATE 10 MG TABLET PO PRN (20:28)
[2021-03-06 00:11] VITALS: BP 140/86
[2021-03-06] MEDS: HALOPERIDOL 5 MG TABLET PO PRN (08:10)
[2021-03-06] MEDS: MULTIVITAMINS WITH MINERALS, THERAPEUTIC TABLET PO SCH (08:10)
[2021-03-06] MEDS: DIVALPROEX SODIUM 250 MG DR TABLET PO SCH ×2 (08:11→20:03)
[2021-03-06 08:57] VITALS: BP 103/42
[2021-03-06 16:13] VITALS: BP 139/74
[2021-03-07 04:28] VITALS: BP 133/64
[2021-03-07] MEDS: MULTIVITAMINS WITH MINERALS, THERAPEUTIC TABLET PO SCH (07:58)
[2021-03-07] MEDS: DIVALPROEX SODIUM 250 MG DR TABLET PO SCH ×2 (07:59→20:17)
[2021-03-07 08:27] VITALS: BP 131/79
[2021-03-07] MEDS: HALOPERIDOL 5 MG TABLET PO PRN (13:48)
[2021-03-07 16:15] VITALS: BP 125/64
[2021-03-07] MEDS: LORazepam 2 MG TABLET PO PRN (18:28)
[2021-03-08 03:34] VITALS: BP 106/68
[2021-03-08 08:12] VITALS: BP 131/69
[2021-03-08] MEDS: MULTIVITAMINS WITH MINERALS, THERAPEUTIC TABLET PO SCH (08:30)
[2021-03-08] MEDS: DIVALPROEX SODIUM 250 MG DR TABLET PO SCH ×2 (08:30→20:42)
[2021-03-08 16:23] VITALS: BP 129/68
[2021-03-08] MEDS: MAG HYDROX/AL HYDROX/SIMETH ES 30 ML SUSPENSION UDCUP PO PRN (17:42)
[2021-03-08] MEDS: ZOLPIDEM TARTRATE 10 MG TABLET PO PRN (20:42)
[2021-03-09 04:53] VITALS: BP 114/68
[2021-03-09] MEDS: MULTIVITAMINS WITH MINERALS, THERAPEUTIC TABLET PO SCH (08:02)
[2021-03-09] MEDS: DIVALPROEX SODIUM 250 MG DR TABLET PO SCH ×2 (08:03→20:36)
[2021-03-09 08:36] VITALS: BP 120/62
[2021-03-09] MEDS: MAGNESIUM HYDROXIDE SUSPENSION 30 ML UDCUP PO PRN (09:19)
[2021-03-09 15:25] LABS: GLUCOMETER DEV NAME(LOC) POC.BV
[2021-03-09 16:13] VITALS: BP 139/83
[2021-03-09] MEDS: LORazepam 2 MG TABLET PO PRN (18:11)
[2021-03-10 06:27] VITALS: BP 126/75
[2021-03-10] MEDS: MULTIVITAMINS WITH MINERALS, THERAPEUTIC TABLET PO SCH (08:14)
[2021-03-10] MEDS: DIVALPROEX SODIUM 250 MG DR TABLET PO SCH ×2 (08:14→20:16)
[2021-03-10 08:21] VITALS: BP 130/74
[2021-03-10 16:15] VITALS: BP 101/71
[2021-03-10] MEDS: ZOLPIDEM TARTRATE 10 MG TABLET PO PRN (20:16)
[2021-03-11 05:19] VITALS: BP 114/74
[2021-03-11] MEDS: MULTIVITAMINS WITH MINERALS, THERAPEUTIC TABLET PO SCH (08:13)
[2021-03-11] MEDS: DIVALPROEX SODIUM 250 MG DR TABLET PO SCH ×2 (08:13→20:52)
[2021-03-11 08:41] VITALS: BP 112/62
[2021-03-11] MEDS: LORazepam 2 MG TABLET PO PRN (09:33)
[2021-03-11 16:15] VITALS: BP 112/62
[2021-03-12 04:40] VITALS: BP 114/62
[2021-03-12] MEDS: MULTIVITAMINS WITH MINERALS, THERAPEUTIC TABLET PO SCH (08:07)
[2021-03-12] MEDS: DIVALPROEX SODIUM 250 MG DR TABLET PO SCH ×2 (08:07→20:54)
[2021-03-12 08:35] VITALS: BP 128/72
[2021-03-12 16:10] VITALS: BP 133/78
[2021-03-13 01:23] VITALS: BP 123/68
[2021-03-13] MEDS: ZOLPIDEM TARTRATE 10 MG TABLET PO PRN (01:43)
[2021-03-13 08:25] VITALS: BP 103/63
[2021-03-13] MEDS: DIVALPROEX SODIUM 250 MG DR TABLET PO SCH ×2 (08:40→20:38)
[2021-03-13] MEDS: MULTIVITAMINS WITH MINERALS, THERAPEUTIC TABLET PO SCH (08:41)
[2021-03-13 16:08] VITALS: BP 147/81
[2021-03-14 01:20] VITALS: BP 101/71
[2021-03-14] MEDS: MULTIVITAMINS WITH MINERALS, THERAPEUTIC TABLET PO SCH (08:12)
[2021-03-14] MEDS: DIVALPROEX SODIUM 250 MG DR TABLET PO SCH ×2 (08:12→20:17)
[2021-03-14] MEDS: BACITRACIN 28 GM OINTMENT TP SCH ×2 (08:12→16:31)
[2021-03-14 08:33] VITALS: BP 137/82
[2021-03-14 08:35] LABS: GLUCOMETER DEV NAME(LOC) POC.BV
[2021-03-14 16:08] VITALS: BP 110/62
[2021-03-15 00:37] VITALS: BP 106/72
[2021-03-15 08:07] VITALS: BP 124/71
[2021-03-15] MEDS: MULTIVITAMINS WITH MINERALS, THERAPEUTIC TABLET PO SCH (08:39)
[2021-03-15] MEDS: DIVALPROEX SODIUM 250 MG DR TABLET PO SCH ×2 (08:39→20:11)
[2021-03-15] MEDS: BACITRACIN 28 GM OINTMENT TP SCH ×2 (08:39→17:10)
[2021-03-15 16:08] VITALS: BP 125/74
[2021-03-16 00:01] VITALS: BP 131/86
[2021-03-16 08:16] VITALS: BP 125/60
[2021-03-16] MEDS: DIVALPROEX SODIUM 250 MG DR TABLET PO SCH (08:31)
[2021-03-16] MEDS: MULTIVITAMINS WITH MINERALS, THERAPEUTIC TABLET PO SCH (08:31)
[2021-03-16] MEDS: BACITRACIN 28 GM OINTMENT TP SCH (08:31)
== END 2021-03-16 09:27 | DRG 885 ==
LOC: B3A 19:27 → B2S 02-08 09:36 → B3A 02-20 08:52
PROVIDERS: ADMIT Psychiatry & Neurology Psychiatry; ATTEND Psychiatry & Neurology Psychiatry
DX: F25.0 Schizoaffective disorder, bipolar type (principal); R45.851 Suicidal ideations; R74.01 Elevation of levels of liver transaminase levels; R73.9 Hyperglycemia, unspecified; Z20.822 Contact with and (suspected) exposure to COVID-19; E66.9 Obesity, unspecified; Z68.34 Body mass index [BMI] 34.0-34.9, adult; Z59.00 Homelessness unspecified; Z79.899 Other long term (current) drug therapy; Z86.59 Personal history of other mental and behavioral disorders
CPT/HCPCS: 80053; 80061; 80164; 80307; 81003; 83036; 84439; 84443; 85025; 87081